=== PATIENT | male | born 1980 | race Hispanic/Latino ===

== ENCOUNTER 2018-05-31 16:45 | Emergency (ER) | payer SELFPAY ==
[2018-05-31 16:45] VITALS: BMI 18.8
[2018-05-31] MEDS ORDERED: Sodium Chloride 0.9% 1,000 ML IV STA (18:06)
[2018-05-31 18:29] VITALS: RESP 18; TEMP 98.2; O2SAT 100
--- NOTE | 2018-05-31 18:41 | ED PDOC ---
Arrival/HPI - History of Present Illness Narrative History of Present Illness (Text): 05/31/18 18:36 Patient is a 37M w/ a PMH of heroin abuse presenting today w/ complaints of agitation/ restlessness. Patient reported that he typically uses 1-2 bags heroin daily and decided to quit heroin yesterday. He stated that the last time he used heroin was approx 30 hours ago. Patient stated that he used benadryl last night which "took the edge off" however today he feels much more "skittish and restless". At time of evaluation patient is has no complaints of headaches, dizziness, diaphoresis, chest pain, sob, abd pain, n/v/d/c, fevers chills. Time/Duration: Prior to Arrival, 24 hours Symptom Onset: Gradual Symptom Course: Worsening Quality: Unable to Describe <Alistair Moreno - Last Filed: 05/31/18 20:06> <Raul Mathew DO - Last Filed: 05/31/18 20:49> - General Chief Complaint: GI Problem Time Seen by Provider: 05/31/18 17:54 Past Medical History - Provider Review Nursing Documentation Reviewed: Yes - Infectious Disease Hx of Infectious Diseases: None - Tetanus Immunization Tetanus Immunization: Up to Date - Cardiac Hx Internal Defibrillator: No - Pulmonary Hx Bronchitis: Yes (pnuemonia with chest tubes 05/10) Hx Pneumonia: Yes (multiple times) - Neurological Hx Neurological Disorder: No - HEENT Hx HEENT Disorder: No - Endocrine/Metabolic Hx Endocrine Disorders: No - Hematological/Oncological Hx Anemia: Yes - Integumentary Hx Dermatological Disorder: No - Musculoskeletal/Rheumatological Hx Musculoskeletal Disorders: No Hx Falls: No - Gastrointestinal Hx Irritable Bowel: Yes - Genitourinary/Gynecological Hx Genitourinary Disorders: No - Psychiatric Hx Emotional Abuse: No Hx Physical Abuse: No Hx Substance Use: Yes - Surgical History Hx Orthopedic Surgery: Yes (Left Hand) Other/Comment: chest tubes from pnuemonia - Anesthesia Hx Anesthesia: Yes Hx Anesthesia Reactions: No Hx Malignant Hyperthermia: No - Suicidal Assessment Feels Threatened In Home Enviroment: No <Alistair Moreno - Last Filed: 05/31/18 20:06> Family/Social History - Physician Review Nursing Documentation Reviewed: Yes Family/Social History: Unknown Family HX Smoking Status: Heavy Smoker > 10 Cigarettes Daily Hx Alcohol Use: No Hx Substance Use: Yes Substance used: heroin inh Hx Substance Use Treatment: No <MorenoAlistair - Last Filed: 05/31/18 20:06> Allergies/Home Meds <JoshAlistair - Last Filed: 05/31/18 20:06> <Raul Mathew DO - Last Filed: 05/31/18 20:49> Allergies/Adverse Reactions: Allergies liver Allergy (Uncoded 04/19/16 13:24) ANGIOEDEMA Home Medications: Home Meds Medication Instructions Recorded Confirmed oxyCODONE 04/19/16 Review of Systems - Review of Systems Constitutional: Normal Eyes: Normal ENT: Normal Respiratory: Normal Cardiovascular: Normal Gastrointestinal: Normal Genitourinary Male: Normal Musculoskeletal: Normal Skin: Normal Neurological: Normal Endocrine: Normal Hemo/Lymphatic: Normal Psychiatric: Anxiety, Other (agitation) <MorenoAlistair - Last Filed: 05/31/18 20:06> Physical Exam Vital Signs Temp Pulse Resp BP Pulse Ox 05/31/18 18:28 98.2 F 86 18 128/70 100 Temperature: Afebrile Blood Pressure: Normal Pulse: Regular Respiratory Rate: Normal Appearance: Positive for: Well-Appearing, Non-Toxic, Comfortable Pain Distress: None Mental Status: Positive for: Alert and Oriented X 3 - Systems Exam Head: Present: Atraumatic, Normocephalic Pupils: Present: Other (DILATED) Extroacular Muscles: Present: EOMI Conjunctiva: Present: Normal Mouth: Present: Moist Mucous Membranes Neck: Present: Normal Range of Motion Respiratory/Chest: Present: Clear to Auscultation, Good Air Exchange. No: Respiratory Distress, Accessory Muscle Use Cardiovascular: Present: Regular Rate and Rhythm, Normal S1, S2. No: Murmurs Abdomen: No: Tenderness, Distention, Peritoneal Signs Back: Present: Normal Inspection Upper Extremity: Present: Normal Inspection. No: Cyanosis, Edema Lower Extremity: Present: Normal Inspection. No: Edema Neurological: Present: GCS=15, CN II-XII Intact, Speech Normal Skin: Present: Warm, Dry, Normal Color. No: Rashes Psychiatric: Present: Alert, Oriented x 3, Normal Insight, Normal Concentration <JoshAlistair - Last Filed: 05/31/18 20:06> Vital Signs Temp Pulse Resp BP Pulse Ox 05/31/18 19:53 61 121/61 05/31/18 19:37 79 18 125/69 100 05/31/18 19:36 98.2 F 54 L 18 118/55 L 99 05/31/18 18:28 98.2 F 86 18 128/70 100 <Raul Mathew DO - Last Filed: 05/31/18 20:49> Medical Decision Making ED Course and Treatment: 05/31/18 18:44 37M presenting w/ complaints of anxiety/ agitation post cessation of heroin Symptoms most likely 2/2 Heroin Withdrawal Pt. aware that this is not a detox facility Plan: CBC CMP ETOH LIPASE MAG UA TOX SCREEN PEPCID ZOFRAN NS BOLUS 05/31/18 19:47 Clonidine 0.1mg 05/31/18 20:06 CBC/CMP WNL TOX - Opiate + EtOH pending Lipase wnl Patient notified that Clonidine has limited utilization in management of opiate withdrawal d/w patient that he will be given appropriate referral to detoxification centers [place] Patient w/ follow up to Detox center - Medication Orders Current Medication Orders: Sodium Chloride (Sodium Chloride 0.9%) 1,000 mls @ 1,000 mls/hr IV .Q1H STA Stop: 05/31/18 19:05 Discontinued Medications Famotidine (Pepcid) 20 mg IVP STAT STA Stop: 05/31/18 18:07 Ondansetron HCl (Zofran Inj) 4 mg IVP STAT STA Stop: 05/31/18 18:07 <Alistair Moreno - Last Filed: 05/31/18 20:06> - Lab Interpretations Lab Results: Total Bilirubin 0.3 mg/dL (0.2-1.3) 05/31/18 18:56 AST 44 U/L (17-59) 05/31/18 18:56 ALT 26 U/L (7-56) 05/31/18 18:56 Alkaline Phosphatase 241 U/L (38-126) H 05/31/18 18:56 Total Protein 8.4 g/dL (5.8-8.3) H 05/31/18 18:56 Albumin 4.6 g/dL (3.0-4.8) 05/31/18 18:56 Globulin 3.8 gm/dL 05/31/18 18:56 Albumin/Globulin Ratio 1.2 (1.1-1.8) 05/31/18 18:56 Lipase 56 U/L (23-300) 05/31/18 18:56 Urine Color Light yellow (YELLOW) 05/31/18 19:10 Urine Appearance Clear (CLEAR) 05/31/18 19:10 Urine pH 7.0 (4.7-8.0) 05/31/18 19:10 Ur Specific [place] 1.015 (1.005-1.035) 05/31/18 19:10 Urine Protein Negative mg/dL (<30 mg/dL) 05/31/18 19:10 Urine Glucose (UA) Negative mg/dL (NEGATIVE) 05/31/18 19:10 Urine Ketones Negative mg/dL (NEGATIVE) 05/31/18 19:10 Urine Blood Negative (NEGATIVE) 05/31/18 19:10 Urine Nitrate Negative (NEGATIVE) 05/31/18 19:10 Urine Bilirubin Negative (NEGATIVE) 05/31/18 19:10 Urine Urobilinogen 0.2 E.U./dL (<1 E.U./dL) 05/31/18 19:10 Ur Leukocyte Esterase Negative Eligio/uL (NEGATIVE) 05/31/18 19:10 - Medication Orders Current Medication Orders: Discontinued Medications Clonidine HCl (Catapres) 0.1 mg PO STAT STA Stop: 05/31/18 19:40 Last Admin: 05/31/18 19:53 Dose: 0.1 mg MAR Pulse and Blood Pressure Document 05/31/18 19:53 LA (Rec: 05/31/18 19:53 [id number] Pulse Pulse Rate (60-90) 61 Blood Pressure Blood Pressure (100/60-150/90) 121/61 Famotidine (Pepcid) 20 mg IVP STAT STA Stop: 05/31/18 18:07 Last Admin: 05/31/18 18:57 Dose: 20 mg IVP Administration Document 05/31/18 18:57 LA (Rec: 05/31/18 18:57 JARET [id number]) Charges for Administration # of IVP Administrations 1 Sodium Chloride (Sodium Chloride 0.9%) 1,000 mls @ 1,000 mls/hr IV .Q1H STA Stop: 05/31/18 19:05 Last Admin: 05/31/18 18:53 Dose: 1,000 mls/hr eMAR Start Stop Document 05/31/18 18:53 LA (Rec: 05/31/18 18:53 LA [id number]) Intravenous Solution Start Date 05/31/18 Start Time 18:53 End Date 05/31/18 End time 19:53 Total Infusion Time 60 Ondansetron HCl (Zofran Inj) 4 mg IVP STAT STA Stop: 05/31/18 18:07 Last Admin: 05/31/18 18:57 Dose: 4 mg IVP Administration Document 05/31/18 18:57 LA (Rec: 05/31/18 18:58 LA [id number]) Charges for Administration # of IVP Administrations 1 <Raul Mathew DO - Last Filed: 05/31/18 20:49> - PA / [employer] / Resident Statement BREE has reviewed & agrees with the documentation as recorded. BREE has examined the patient and agrees with the treatment plan. <Raul Mathew DO - Last Filed: 05/31/18 20:49> Disposition/Present on Arrival - Present on Arrival Any Indicators Present on Arrival: No History of DVT/PE: No History of Uncontrolled Diabetes: No Urinary Catheter: No History of Decub. Ulcer: No History Surgical Site Infection Following: Orthopedic Procedures - Disposition Have Diagnosis and Disposition been Completed?: Yes Disposition Time: 20:08 Patient Plan: Discharge <Alistair Moreno - Last Filed: 05/31/18 20:06> <Raul Mathew DO - Last Filed: 05/31/18 20:49> - Disposition Diagnosis: Opiate withdrawal, Opiate dependence Disposition: HOME/ ROUTINE Condition: IMPROVED Discharge Instructions (ExitCare): Drug Abuse and Drug Addiction (DC) Additional Instructions: ROBERT ALMEIDA, thank you for letting us take care of you today. The emergency medical care you received today was directed at your acute symptoms. If you were prescribed any medication, please fill it and take as directed. It may take several days for your symptoms to resolve. Return to the Emergency Department if your symptoms worsen, do not improve, or if you have any other problems. Please contact your doctor or call one of the physicians/clinics you have been referred to that are listed on the Patient Visit Information form that is included in your discharge packet. Bring any paperwork you were given at discharge with you along with any medications you are taking to your follow up visit. Our treatment cannot replace ongoing medical care by a primary care provider outside of the emergency department. Thank you for allowing the [employer] [facility] team to be part of your care today. Follow up with the [facility] service. They will be able to give you information about contacting [facility] about their detox program and availability. If they do not have any beds available, they may be able to supply you with additional information about detox programs in the area. Referrals: [facility] [Outside] - Follow up with primary Forms: [employer] ([place]ovenian)
[2018-05-31 19:32] LABS: URINE APPEARANCE CLEAR (CLEAR); URINE BILIRUBIN NEGATIVE (NEGATIVE); URINE BLOOD NEGATIVE (NEGATIVE); URINE COLOR LIGHT YELLOW (YELLOW); URINE GLUCOSE (UA) NEGATIVE (NEGATIVE); URINE LEUKOCYTE ESTERASE NEGATIVE Leu/uL (NEGATIVE); URINE PROTEIN NEGATIVE mg/dL (<30 mg/dL); URINE UROBILINOGEN 0.2 E.U./dL (<1 E.U./dL)
[2018-05-31 19:34] LABS: ALB/GLOB RATIO 1.2 (1.1-1.8); ALBUMIN 4.6 g/dL (3.0-4.8); ALT/SGPT 26 U/L (7-56); AST/SGOT 44 U/L (17-59); BASO # 0.05 K/mm3 (0.0-2.0); BASO % 0.6 % (0.0-3.0); BLOOD UREA NITROGEN 11 mg/dL (7-21); EOS # 0.3 (0.0-0.7); EOS % 3.2 % (1.5-5.0); GFR NON-AFRICAN AMERICAN > 60; HEMOGLOBIN 13.7 g/dL (14.0-18.0); LIPASE 56 U/L (23-300); LYMPH % 23.7 % (22.0-35.0); MEAN CELL VOLUME 82.2 fl (80.0-105.0); MEAN CORPUSCULAR HEMOGLOBIN 27.3 pg (25.0-35.0); MEAN CORPUSCULAR HGB CONC 33.3 g/dl (31.0-37.0); MEAN PLATELET VOLUME 9.6 fl (7.0-11.0); MONO # 0.5 (0.1-0.6); MONO % 5.5 % (1.0-6.0); RBC 5.01 10^6/uL (3.5-6.1); RED CELL DISTRIBUTION WIDTH 15.7 % (11.5-14.5); WHITE BLOOD COUNT 8.4 10^3/uL (4.5-11.0)
[2018-05-31 19:49] LABS: BARBITURATES, UR NEGATIVE (NEGATIVE); BENZODIAZEPINES, UR NEGATIVE (NEGATIVE); OPIATES, UR POSITIVE (NEGATIVE); PHENCYCLIDINE, UR NEGATIVE (NEGATIVE)
[2018-05-31 19:54] VITALS: BP 121/61; PULSE 61
== END 2018-05-31 20:25 | disposition home or self-care (01) ==
LOC: ED 16:45
DX: F11.23 Opioid dependence with withdrawal (principal); F17.210 Nicotine dependence, cigarettes, uncomplicated
CPT/HCPCS: 80053; 81003; 83690; 83735; 85025; 96361; 96374; 96375; 99283; G0480; J2405; J7030